=== PATIENT | male | born 1950 | race Caucasian/White ===

== ENCOUNTER 2016-10-19 13:35 | Emergency (ER) | payer OTHER ==
[2016-10-19 14:16] VITALS: BP 147/84; PULSE 70; RESP 17; TEMP 98.2; O2SAT 96
== END 2016-10-19 16:35 | disposition left against medical advice (07) ==
DX: Z53.21 Procedure and treatment not carried out due to patient leaving prior to being seen by health care provider (principal)

== ENCOUNTER 2016-10-21 07:07 | Emergency (ER) | payer OTHER ==
--- NOTE | 2016-10-21 07:47 | EDPHY ---
H & P Time Seen by Provider: 10/21/16 07:31 HPI/ROS: HPI Left calf pain. 66-year-old male by private vehicle. He complains of left calf plain, atraumatic, ongoing for 3 days. He is concerned about a DVT. He does not have any significant past medical history. He is not on any prescription medications. No prior history of DVT or PE. Denies any injury or trauma. ROS: Constitutional: No fever, no chills. No weakness. Respiratory: No cough. No shortness of breath. Cardiac: No chest pain, no palpitations. Musculoskeletal: No back pain. No neck pain. As above. Skin: No rashes. Neurological: No headache. No focal weakness or altered sensation. Past medical history: Denies. Social history: Here by himself. Nonsmoker. Physical Exam: General Appearance: Alert, no distress. This patient is responding to questions appropriately and in full sentences. This patient appears well- hydrated and well-nourished. Eyes: Pupils equal and round no pallor or injection. No lid edema, erythema or injection. Left lower extremity exam: Left lower extremity is symmetrical to the right lower extremity on exam. He has some vague mid left calf tenderness which is mild on deep palpation of the mid soleus and gastrocnemius musculature. No palpable cords. Negative Homans sign. No erythema, warmth or ecchymosis noted. The left lower extremity is neurovascularly intact. Neurological: Motor sensory function is grossly intact. Cranial nerves are normal. Gait is normal. Skin: Warm and dry, no rashes. Extremities are symmetrical. All joints range without pain or impingement. Psychiatric: No agitation. No depression. Database: EKG: Imaging: Left lower extremity Doppler ultrasound: Negative for DVT. Results were discussed with staff radiologist. Procedures: Emergency department course: Left lower extremity Doppler ultrasound ordered to evaluate for DVT. Patient's physical exam otherwise unremarkable. No evidence of infectious or traumatic source of patient's left calf discomfort. 8:55 a.m., patient re-evaluated. Resting comfortably at this time. Results of his ultrasound were discussed with him. Plan will be to treat with high-dose ibuprofen for 3 days and follow up with primary care physician. I discussed limited activity until his pain improves. Return to emergency department precautions reviewed. All of his questions were answered. He feels comfortable going home. He was discharged in good condition. Differential Diagnosis: The differential diagnosis on this patient includes but is not limited to DVT, muscle strain. Cellulitis, traumatic injury unlikely. This represents a partial list of diagnoses considered. These considerations are based on history , physical exam, past history, reassessment and diagnostic testing. Smoking Status: Never smoked Constitutional: Initial Vital Signs Temperature (C) 36.6 C 10/21/16 07:10 Heart Rate 74 10/21/16 07:10 Respiratory Rate 14 10/21/16 07:10 Blood Pressure 119/89 H 10/21/16 07:10 O2 Sat (%) 97 10/21/16 07:10 O2 Delivery Mode Room Air Allergies/Adverse Reactions: No Known Allergies Allergy (Unverified 10/19/16 14:12) Home Medications: Medication Instructions Recorded NK [No Known Home Meds] 10/19/16 Departure - Departure Disposition: Home, Routine, Self-Care Clinical Impression: Pain of left calf Condition: Good Instructions: Leg Pain (ED), Muscle Strain (ED) Additional Instructions: Read and follow provided instructions. Avoid physical activity which exacerbates pain in left calf. Follow-up with your primary care physician in 1-2 days for re-evaluation. Ibuprofen dosin mg every 6 hours with meals for the next 3 days only. Return to the emergency department for worsening pain, discoloration, swelling, loss of sensation, weakness or other serious concerns. Referrals: Hilda Clark MD [Primary Care Provider] - As per Instructions
[2016-10-21 09:18] VITALS: BP 137/86; PULSE 63; RESP 16; TEMP 98.6; O2SAT 98
== END 2016-10-21 09:18 | disposition home or self-care (01) ==
DX: M79.605 Pain in left leg (principal)